=== PATIENT | male | born 1980 ===

== ENCOUNTER 2023-03-31 11:39 | Emergency (ER) | payer MEDICAID, SELFPAY ==
[2023-03-31 12:37] VITALS: BP 133/80; PULSE 66; RESP 19; TEMP 36.6; O2SAT 96; BMI 37.0
--- NOTE | 2023-03-31 12:39 | ED.GENADULT ---
HPI - General Adult General Chief complaint: Abdominal Pain Stated complaint: Lower abd pain Time Seen by Provider: 03/31/23 17:45 Source: patient Mode of arrival: ambulatory Limitations: no limitations History of Present Illness HPI narrative: 43-year-old male presents with lower abdominal pain. Symptoms started 2 days ago. The pain started off as a /10 and the crescendoed yesterday to it 03/26. The pain is in the suprapubic area. Sometimes it radiates the lower back. There is no clear relieving or exacerbating features. He does have urinary frequency, urgency and dysuria. Denies any hematuria. He denies any flank pain. The pain is currently moderate in nature. He has never had anything like this before. He is and is in a monogamous relationship with his . Related Data Previous Rx's Medication Instructions Recorded levofloxacin 500 mg tablet 500 mg PO DAILY #10 tabs 03/31/23 Allergies Allergy/AdvReac Type Severity Reaction Status Date / Time fish derived [FISH] Allergy Unknown SWELLING/HI Unverified 05/03/20 16:44 VES Review of Systems Review of Systems: CONSTITUTIONAL: Denies weight loss, fever and chills. HEENT: Denies changes in vision and hearing. RESPIRATORY: Denies SOB and cough. CV: Denies palpitations no CP. GI: + abdominal pain, - nausea, vomiting and diarrhea. : + dysuria and urinary frequency. MSK: Denies myalgia and joint pain. SKIN: Denies rash and pruritus. NEUROLOGICAL: Denies headache and syncope. PSYCHIATRIC: Denies recent changes in mood. Denies anxiety and depression. All other ROS are negative unless in HPI Physical Exam ED Vital Signs: Vital Signs - 24 hr 03/31/23 12:37 Temperature 97.8 F Pulse Rate 66 Respiratory Rate 19 Blood Pressure 133/80 Pulse Oximetry 96 Oxygen Delivery Method Room Air BMI result Body Mass Index 37.0 GEN: Well developed, no acute distress, alert, oriented HEENT: Normocephalic, atraumatic, normal external ears, nose appears normal, no oropharyngeal edema or exudates Eyes: Normal to appearance Neck: Supple, no lymphadenopathy Respiratory: Talks in complete sentences, no respiratory distress, clear to auscultation bilaterally Cardiovascular: Regular rate and rhythm, no murmurs rubs or gallops Abdomen: Soft, suprapubic tenderness, nondistended, no guarding, no rebound Back: No CVA tenderness Extremities: No clubbing cyanosis or edema Neurologic: No focal neurologic deficits, cranial nerves 2-12 intact, strength is 5/5 bilaterally Skin: No rash Course Course Course Narrative: This is an RME: Additional HPI, ROS, PE not included below will be deferred to primary provider. Patient is a 43 year old healthy male presenting with lower abdominal pain since Thursday. Denies nausea or vomiting. Trouble urinating. Patient has not seen GI and has no history of diverticulitis. Plan: labs, urine Reevaluation(s) Reevaluation #1: Patient has UTI. He has no right lower quadrant tenderness, doubt need to do any imaging studies at this time. Is unusual for young male to have a UTI. Will refer the patient to Urology. Will start patient on levofloxacin. Time: 17:56 Medical Decision Making Medical Decision Making [facility] Narrative: Patient presents with lower abdominal pain and urinary symptoms. Exam reveals suprapubic tenderness without rebound or guarding. There is no McBurney's point tenderness, negative Felder sign, negative Rovsing sign, no left lower quadrant abdominal tenderness. Differential diagnosis includes UTI, kidney stone, diverticulitis, appendicitis, colitis, mesenteric adenitis, IBD, IBS Plan: Check labs. Re-evaluate patient should he develop any localizing tenderness the right lower quadrant or other areas, would consider CT scan or ultrasound. At this point, doubt patient will warrant admission however, she show any acute abdominal findings, he may require admission, observation possible surgery. Differential Diagnosis Differential Diagnoses: The differential diagnosis associated with the presentation includes (See above) Admission/Observation Consideration of admission/observation: Escalation of care including admission/observation considered Lab Data [facility] Lab Attestation statement: I reviewed the patient's lab results. 03/31/23 14:19 03/31/23 14:19 Labs: Lab Results 03/31/23 03/31/23 03/31/23 Range/Units 14:18 14:19 14:19 WBC 7.7 (4.8-10.8) X10*3/uL RBC 4.81 (4.60-5.80) X10*6/uL Hgb 14.1 (14.0-18.0) g/dl Hct 42.1 (42.0-52.0) % MCV 87.5 (80.0-98.0) fL MCH 29.3 (27.0-33.0) pg MCHC 33.5 (31.0-36.0) g/dl RDW 11.7 (11.0-16.0) % Plt Count 335 (160-400) X10*3/uL MPV 10.3 (9.4-12.4) fL Immature Gran % (Auto) 0.3 (0.0-0.4) % Neut % (Auto) 55.2 (45-73) % Lymph % (Auto) 31.9 (20-40) % [place] % (Auto) 7.2 (2-11) % Eos % (Auto) 4.7 H (0-4) % Baso % (Auto) 0.7 (0-2) % Lymph # (Auto) 2.4 (1.2-4.9) X10*3/uL [place] # (Auto) 0.6 (0.1-1.2) X10*3/uL Eos # (Auto) 0.4 (0.0-0.4) X10*3/uL Baso # (Auto) 0.1 (0.0-0.2) X10*3/uL Abs Immat Gran (auto) 0.02 (0.00-0.03) X10*3/uL Absolute Neuts (auto) 4.2 (2.0-8.3) x10*3/uL Absolute Nucleated RBC 0.000 (0.0-0.012) X10*3/uL Nucleated RBC % (auto) 0.0 (0.0-0.2) /100WBC Sodium 140 (135-145) mmol/L Potassium 4.4 (3.3-5.1) mmol/L Chloride 102 (96-108) mmol/L Carbon Dioxide 29 (22-29) mmol/L Anion Gap 13 (12-20) BUN 10 (9-16) mg/dL Creatinine 0.96 (0.5-1.4) mg/dL Estim Creat Clear Calc 119.5 Estimated GFR > 60 Random Glucose 144 H (60-115) mg/dL Calcium 9.7 (8.4-10.2) mg/dL Magnesium 2.4 (1.6-2.6) mg/dL Total Bilirubin 0.6 (0.0-1.0) mg/dL AST 14 (5-37) U/L ALT 19 (0-40) U/L Alkaline Phosphatase 68 (39-117) U/L Total Protein 8.2 H (6.5-8.0) g/dL Albumin 4.5 (3.5-5.0) g/dL Lipase 83 H (8-78) U/L Urine Color Yellow Urine Appearance Clear Urine pH 6.0 (5.0-9.0) Ur Specific [place] 1.025 (1.005-1.025) Urine Protein Negative (Neg-Trace) mg/dL Urine Glucose (UA) Negative (Negative) mg/dL Urine Ketones Trace (Negative) mg/dL Urine Blood Negative (Negative) Urine Nitrite Negative (Negative) Ur Leukocyte Esterase Small (1+) H (Negative) Urine RBC 3-5 H (0-2) /HPF Urine WBC 21-50 H (0-5) /HPF Ur Squamous Epith Cells 0-2 (0-2) /HPF Urine Bacteria None Seen (None Seen) Hyaline Casts 0-2 (0-2) /LPF has UTI Prescription Management I considered prescription management with: Antibiotic Discharge Plan Discharge Clinical Impression: Acute lower UTI Patient Disposition: Home, Self-Care Instructions: Urinary Tract Infection in Men (DC) Prescriptions: New levofloxacin 500 mg tablet 500 mg PO DAILY Qty: 10 0RF Referrals: Sanjay Valerio MD [Physician] - 1 week
[2023-03-31 14:37] LABS: MANUAL DIFF FLAG NO
[2023-03-31 14:39] LABS: Basophils Absolute Auto 0.1 X10*3/uL (0.0-0.2); Basophils Percent Auto 0.7 % (0-2); Eosinophils Absolute Auto 0.4 X10*3/uL (0.0-0.4); Eosinophils Percent Auto 4.7 % (0-4); Hematocrit 42.1 % (42.0-52.0); Hemoglobin 14.1 g/dl (14.0-18.0); Imm Gran Abs Auto 0.02 X10*3/uL (0.00-0.03); Imm Gran Pct Auto 0.3 % (0.0-0.4); Lymphocytes Absolute Auto 2.4 X10*3/uL (1.2-4.9); Lymphocytes Percent Auto 31.9 % (20-40); Mean Corpuscular HGB Conc 33.5 g/dl (31.0-36.0); Mean Corpuscular Hemoglobin 29.3 pg (27.0-33.0); Mean Corpuscular Volume 87.5 fL (80.0-98.0); Mean Platelet Volume 10.3 fL (9.4-12.4); Monocytes Absolute Auto 0.6 X10*3/uL (0.1-1.2); Monocytes Percent Auto 7.2 % (2-11); Neutrophils Absolute Auto 4.2 x10*3/uL (2.0-8.3); Neutrophils Percent Auto 55.2 % (45-73); Platelet Count 335 X10*3/uL (160-400); Red Blood Count 4.81 X10*6/uL (4.60-5.80); Red Cell Distribution Width 11.7 % (11.0-16.0); White Blood Count 7.7 X10*3/uL (4.8-10.8)
[2023-03-31 14:40] LABS: Appearance Urine Clear; Color Urine Yellow; Glucose Urine UA Negative (Negative); Leukocyte Esterase Urine Small (1+) (Negative); Nitrite Urine Negative (Negative); Specific Gravity - Urine 1.025 (1.005-1.025); UMIC TRIGGER UACC YES; Urine Blood Negative (Negative); Urine Ketones Trace mg/dL (Negative); Urine Protein Negative (Neg-Trace)
[2023-03-31 14:42] LABS: Bacteria Urine None Seen (None Seen); Hyaline Casts Urine 0-2 /LPF (0-2); Squamous Epithelial Cell Urine 0-2 /HPF (0-2); UACC Culture Trigger YES; WBC Urine 21-50 /HPF (0-5)
[2023-03-31 14:55] LABS: Alanine Aminotransferase 19 U/L (0-40); Albumin Level 4.5 g/dL (3.5-5.0); Alkaline Phosphatase 68 U/L (39-117); Anion Gap 13 (12-20); Aspartate Amino Transferase 14 U/L (5-37); Bilirubin Total 0.6 mg/dL (0.0-1.0); Blood Urea Nitrogen 10 mg/dL (9-16); Calcium 9.7 mg/dL (8.4-10.2); Carbon Dioxide 29 mmol/L (22-29); Chloride 102 mmol/L (96-108); Creatinine Clr Calc Pharmacy 119.5; Estimated Glomerular Filt Rate > 60; Glucose Random 144 mg/dL (60-115); Lipase 83 U/L (8-78); Magnesium 2.4 mg/dL (1.6-2.6); Potassium 4.4 mmol/L (3.3-5.1); Sodium 140 mmol/L (135-145); Total Protein 8.2 g/dL (6.5-8.0)
[2023-03-31] MEDS: levoFLOXacin 500 MG TABLET PO (18:30)
[2023-03-31 20:41] VITALS: BP 137/78; PULSE 60; RESP 16; TEMP 36.9; O2SAT 98
== END 2023-03-31 21:25 | disposition home or self-care (01) ==
PROVIDERS: Physician Assistant; Emergency Provider Emergency Medicine
DX: N39.0 Urinary tract infection, site not specified (principal); R10.30 Lower abdominal pain, unspecified
CPT/HCPCS: 36415; 80053; 81001; 83690; 83735; 85025; 87086; 99283

== ENCOUNTER 2023-06-10 12:08 | Emergency (ER) | payer BC, MEDICAID, SELFPAY ==
--- NOTE | ~2023-06-10 | XR_ITS ---
EXAMINATION: XR CHEST CLINICAL INFORMATION: Chest congestion. COMPARISON: None available. TECHNIQUE: Frontal view of the chest was obtained. FINDINGS: Lungs are well-inflated and clear. Trachea is midline in position. No evidence of interstitial disease, consolidation or mass. No pleural effusion or pneumothorax. Cardiac silhouette and pulmonary vessels are normal in size. The mediastinum and bettina have normal contour. The visualized bones and upper abdomen are unremarkable. XR/XR chest 1V IMPRESSION: No acute cardiopulmonary abnormality.
[2023-06-10 12:59] VITALS: BP 121/75; PULSE 73; RESP 17; TEMP 36.5; O2SAT 98
[2023-06-10 13:29] LABS: COVID-19 Test Negative (Negative); IDNOW Serial# 08D9AD1C
[2023-06-10 13:49] LABS: IDNOW Serial# 08D9AD1C; Influenza A Negative (Negative); Influenza B2 Negative (Negative)
--- NOTE | 2023-06-10 15:15 | ED.GENADULT ---
HPI - General Adult General Chief complaint: Upper Respiratory Symptoms Stated complaint: Diff Breathing Congestion Heavy Chest Time Seen by Provider: 06/10/23 15:13 Source: patient, family and RN notes reviewed Mode of arrival: ambulatory Limitations: no limitations History of Present Illness HPI narrative: This is a 43-year-old male, with no known past medical history, presenting to the emergency department for evaluation of cough, congestion, right ear pain and sore throat since yesterday. Patient states yesterday woke up feeling congested. He states that since the onset of his symptoms he has developed a sore throat and right ear pain. No fevers or chills. Denies any other complaints or concerns at this time. MD complaint: R ear pain Onset (ago): day(s) Relieving factors: none Exacerbating factors: none Associated symptoms: denies other symptoms Treatments prior to arrival: none Related Data Previous Rx's Medication Instructions Recorded levofloxacin 500 mg tablet 500 mg PO DAILY #10 tabs 03/31/23 amoxicillin 875 mg-potassium 1 tab PO BID 7 days #14 tabs 06/10/23 clavulanate 125 mg tablet Allergies Allergy/AdvReac Type Severity Reaction Status Date / Time fish derived [FISH] Allergy Unknown SWELLING/HI Unverified 05/03/20 16:44 VES Review of Systems Review of Systems: Yes all other systems are reviewed and are negative [facility] Past Medical History Attestation statement: The following information was validated with the patient. Social History Social History Advance Directives: No Advance Directives Information Provided: No Physical Exam ED Vital Signs: Vital Signs - 24 hr 06/10/23 12:59 Temperature 97.7 F Pulse Rate 73 Respiratory Rate 17 Blood Pressure 121/75 Pulse Oximetry 98 Oxygen Delivery Method Room Air BMI result Body Mass Index 0.4 Const General: cooperative, comfortable and no acute distress Orientation/consciousness: patient oriented x3 Limitations: no limitations HENMT Other: R TM is erythematous with multiple ?white exudates on the surface. TM is intact. Canal nonerythematous, nonedematous. L TM unremarkable Head: Yes normal to inspection, Yes normocephalic and Yes atraumatic Ears: hearing grossly normal bilaterally General nose exam: Normal external nose present Face and sinus: Yes normal facial exam Mouth: Normal oral and palatal mucosa present, oropharynx normal and moist mucous membranes Throat: Yes posterior oropharynx normal Eyes General: appearance normal, both eyes and all related structures Eyelids: Yes eyelids normal Conjunctivae: conjunctivae normal Sclerae: sclerae normal Pupils: Equal, round and reactive pupils present EOM: EOMs intact bilaterally Neck Neck: Yes normal visual inspection, Yes full ROM and Yes no lymphadenopathy Lymphatic: no lymphadenopathy noted Chest Chest palpation & inspection: normal inspection of the chest Resp Effort & Inspection: normal respiratory effort and able to speak in complete sentences Auscultation: clear to auscultation bilaterally, no crackles, no rales, no rhonchi and no wheezes Cardio Rate: regular rate Rhythm: regular rhythm Heart sounds: S1 normal heart sound present and S2 normal heart sound present GI Inspection: Yes normal to inspection Skin General skin exam: no rashes or lesions noted Trauma: no lacerations or abrasions Wounds: no wounds Neuro General: patient oriented x3 and moves all extremities Cranial nerves: Yes Equal, round and reactive pupils present Extrem General: Yes normal to inspection Right upper extremity: normal to inspection Left upper extremity: normal to inspection Right lower extremity: normal to inspection Left lower extremity: normal to inspection Medical Decision Making Medical Decision Making MDM Narrative: 43 y/o M presenting to the ER with complaints of R ear pain, cough and congestion since yesterday. On arrival, pt nontoxic appearing, VSS. DDX including otitis media, otitis externa, URi, viral syndrome, pneumonia - unlikely. Viral swabs negative. Exam findings consistent with otits media, however would like ENT f/u given atypical appearing TM. Discussed findings with pt. He agrees with plan. Given return precautions. Stable for d/c. Differential Diagnosis Differential Diagnoses: The differential diagnosis associated with the presentation includes see above Lab Data Labs: Lab Results 06/10/23 Range/Units 13:09 COVID-19 (RU) Negative (Negative) COVID-19 Clin Com See Note Influenza Type A (BIB) Negative (Negative) Influenza Type B (BIB) Negative (Negative) Influenza A & B Note See Note Discharge Plan Discharge Clinical Impression: Otitis media Patient Disposition: Home, Self-Care Instructions: Ear Infection (ED) Additional Instructions: You tested negative for COVID and flu. Your chest x-ray did not show pneumonia. Your right ear appears to be infected. Please take entire course of antibiotics even if you are feeling better. You may take Tylenol and ibuprofen as needed for fevers. Please follow-up with ENT, call today to make an appointment. If any new or worsening symptoms occur including but not limited to worsening ear pain, chest pain, shortness of breath, please return for re-evaluation. Prescriptions: New amoxicillin-pot clavulanate 875-125 mg tablet 1 tab PO BID 7 Days Qty: 14 0RF No Action levofloxacin 500 mg tablet 500 mg PO DAILY Qty: 10 0RF Referrals: Lev Morales [Physician] - (R OM; R atypical TM, needs further evaluation ) Stand Alone Forms: Work/School Release Interventions: ED Discharge Assessment Last Done: 06/10/23 15:58 Discharge Date/Time: 06/10/23 16:02
== END 2023-06-10 16:02 | disposition home or self-care (01) ==
PROVIDERS: Emergency Provider Emergency Medicine
DX: H66.91 Otitis media, unspecified, right ear (principal); Z11.52 Encounter for screening for COVID-19; R05.9 Cough, unspecified
CPT/HCPCS: 71045; 87502; 87635; 99283

== ENCOUNTER 2023-06-16 13:16 | Emergency (ER) | payer BC, MEDICAID, SELFPAY ==
--- NOTE | ~2023-06-16 | XR_ITS ---
EXAMINATION: XR CHEST CLINICAL INFORMATION: Cough, chest pain COMPARISON: Chest 04/10/2023 TECHNIQUE: Frontal view of the chest was obtained. FINDINGS: No significant abnormality is noted involving the heart, lungs, mediastinum, bony thorax or soft tissues. XR/XR chest 1V IMPRESSION: No acute cardiopulmonary disease.
--- NOTE | 2023-06-16 13:23 | ECG_ITS ---
Test Reason : chest tightness Blood Pressure : / mmHG Vent. Rate : 073 BPM Atrial Rate : 073 BPM P-R Int : 178 ms QRS Dur : 090 ms QT Int : 376 ms P-R-T Axes : 018 000 004 degrees QTc Int : 414 ms Normal sinus rhythm with sinus arrhythmia Nonspecific T wave abnormality Abnormal ECG No previous ECGs available Referred By: Generic ED Physician Electronically Signed By:SELINA BOB MD
[2023-06-16 13:44] VITALS: BP 115/70; PULSE 85; RESP 18; TEMP 36.4; O2SAT 97; BMI 37.8
--- NOTE | 2023-06-16 13:44 | ED_ITS ---
HPI - Chest Pain General Chief Complaint: Upper Respiratory Symptoms Stated Complaint: Chest Tightness Wheezing Time Seen by Provider: 06/16/23 17:02 Source: patient, family and RN notes reviewed Mode of arrival: ambulatory Limitations: no limitations History of Present Illness HPI narrative: This is a 43-year-old male, with a past medical history of childhood asthma, presenting to the emergency department with complaints of chest discomfort, body aches, coughing and wheezing x1 week. Patient was seen here last for a right ear infection. He has been taking the prescribed antibiotic, Augmentin, and states that his right ear pain has improved however, he is now having cough and chest tightness. He states that the chest pain comes and goes, worsens with coughing. Denies any fevers or chills. Denies any abdominal pain, nausea, vomiting. He does endorse mild diarrhea, no bloody or black stool. No family medical history of heart attacks, does report hypertension runs in his family. Denies any other complaints or concerns at this time. MD complaint: chest pain Onset (ago): day(s) Timing of current episode: episodic Prior episodes: No Onset: other (Worsens with coughing) Pain radiation: none Quality: tightness Relieving factors: nothing Exacerbating factors: nothing Context: recent illness Associated symptoms: cough Treatment prior to arrival: none Risk Factors Coronary artery disease risk factors: none Thoracic aortic dissection risk factors: none Related Data Previous Rx's Medication Instructions Recorded levofloxacin 500 mg tablet 500 mg PO DAILY #10 tabs 03/31/23 amoxicillin 875 mg-potassium 1 tab PO BID 7 days #14 tabs 06/10/23 clavulanate 125 mg tablet albuterol sulfate 90 mcg/actuation 2 puff inhalation Q4-6H PRN 06/16/23 aerosol inhaler (ProAir HFA) shortness of breath or wheezing #6.7 grams benzonatate 200 mg capsule 200 mg PO TID PRN cough #14 caps 06/16/23 hydrocodone-homatropine 5 mg-1.5 5 ml PO Q4-6H PRN cough #200 mL 06/16/23 mg/5 mL (5 mL) oral syrup (Hycodan) Allergies Allergy/AdvReac Type Severity Reaction Status Date / Time fish derived [FISH] Allergy Unknown SWELLING/HI Verified 06/16/23 13:44 VES Review of Systems 2 Review of Systems: Yes all other systems are reviewed and are negative Constitutional: Constitutional: Reports as per [facility] Past Medical History Attestation statement: The following information was validated with the patient. Social History Social History Advance Directives: No Physical Exam 2 Vital Signs: Vital Signs: Last Vital Signs Temp 97.5 F 06/16/23 13:44 Pulse 69 06/16/23 17:51 Resp 18 06/16/23 17:51 BP 115/70 06/16/23 13:44 Pulse Ox 97 06/16/23 13:44 O2 Del Method Room Air 06/16/23 13:44 BMI result Body Mass Index 37.8 Const: General: cooperative, comfortable and no acute distress O rientation/consciousness: patient oriented x3 Limitations: no limitations HEENT: Head: Yes normal to inspection, Yes normocephalic and Yes atraumatic Ears: hearing grossly normal bilaterally General nose exam: Normal external nose present Face and sinus: Yes normal facial exam Mouth: Normal oral and palatal mucosa present, oropharynx normal and moist mucous membranes Throat: Yes posterior oropharynx normal Eyes: General: appearance normal, both eyes and all related structures E yelids: Yes eyelids normal Conjunctivae: conjunctivae normal Sclerae: s clerae normal Pupils: Equal, round and reactive pupils present EOM: EOMs intact bilaterally Neck: Neck: Yes normal visual inspection, Yes full ROM and Yes no lymphadenopathy Lymphatic: no lymphadenopathy noted Chest: Other: Nontender chest wall. Tenderness palpation along the right posterior ribs Chest palpation & inspection: normal inspection of the chest Resp: Other: Faint expiratory wheezes noted to bilateral lung bases. Effort & Inspection: normal respiratory effort and able to speak in complete sentences Cardio: Rate: regular rate Rhythm: regular rhythm Heart sounds: S1 normal heart sound present and S2 normal heart sound present GI: Inspection: Yes normal to inspection Skin: General skin exam: no rashes or lesions noted Trauma: no lacerations or abrasions Wounds: no wounds Neuro: General: patient oriented x3 and moves all extremities Cranial nerves: Yes Equal, round and reactive pupils present Extrem: General: Yes normal to inspection Right upper extremity: normal to inspection Left upper extremity: normal to inspection Right lower extremity: normal to inspection Left lower extremity: normal to inspection Course Course Course Narrative: RME: 43yo m w/PMHx recently Dx Otitis media started on Augmentin in our ED on 06/10 presenting to the ED today c/o dry cough, chest tightness and wheezing & chills x last week. Admits sx are getting worse. denies fever EKG, labs, CXR, COVID testing ordered Full HPI, ROS and PE to be performed by primary ED provider. Reevaluation(s) Reevaluation #1: Negative COVID, flu, RSV, no leukocytosis, chemistry within normal limits. Glucose mildly elevated at 190, troponin negative. Does not need repeat troponin given chest pain has been consistent over the last week. Chest pain worsens with cough. Patient with wheezes on examination, ED bronch protocol was ordered. Time: 17:44 Reevaluation #2: Patient received inhaler, feeling much better. Symptoms likely viral and reactive airway disease etiology. Will treat with oral and Time: 18:09 Medications Administered Discontinued Medications Generic Name Dose Route Start Last Admin Trade Name Freq PRN Reason Stop Dose Admin Albuterol Sulfate 4 puff 06/16/23 17:34 06/16/23 17:50 Albuterol Sulfate 90 Mcg 8 Gm Inhaler INHALE 06/16/23 17:35 4 puff ONCE ONE Administration Medical Decision Making Medical Decision Making [facility] Narrative: This is a 43-year-old male presenting to the emergency department for evaluation of chest discomfort and tightness after coughing x 1 week. Patient was seen here in the emergency department for a right otitis media. He has been taking the Augmentin as prescribed. He states that he continues to cough and has noticed worsening wheezing and shortness of breath. He states that the cough keeps him up at night. He has a history of childhood asthma. On arrival, vital signs within normal limits. Lines with extra epifanio phase wheeze and bilateral lung bases. Differential diagnoses include URI, reactive airway disease upper respiratory infection, less likely pneumonia. Less likely ACS. Plan: Labs, EKG, chest x-ray, viral swabs Differential Diagnosis Differential Diagnoses: The differential diagnosis associated with the presentation includes Admission/Observation Consideration of admission/observation: Escalation of care including admission/observation considered Lab Data [facility] Lab Attestation statement: I reviewed the patient's lab results. See MDM 06/16/23 14:09 06/16/23 14:09 Labs: Lab Results 06/16/23 06/16/23 Range/Units 14:09 16:45 WBC 7.8 (4.8-10.8) X10*3/uL RBC 4.37 L (4.60-5.80) X10*6/uL Hgb 13.0 L (14.0-18.0) g/dl Hct 38.5 L (42.0-52.0) % MCV 88.1 (80.0-98.0) fL MCH 29.7 (27.0-33.0) pg MCHC 33.8 (31.0-36.0) g/dl RDW 11.5 (11.0-16.0) % Plt Count 364 (160-400) X10*3/uL MPV 10.1 (9.4-12.4) fL Immature Gran % (Auto) 0.4 (0.0-0.4) % Neut % (Auto) 60.8 (45-73) % Lymph % (Auto) 25.5 (20-40) % [place] % (Auto) 4.0 (2-11) % Eos % (Auto) 8.4 H (0-4) % Baso % (Auto) 0.9 (0-2) % Lymph # (Auto) 2.0 (1.2-4.9) X10*3/uL [place] # (Auto) 0.3 (0.1-1.2) X10*3/uL Eos # (Auto) 0.7 H (0.0-0.4) X10*3/uL Baso # (Auto) 0.1 (0.0-0.2) X10*3/uL Abs Immat Gran (auto) 0.03 (0.00-0.03) X10*3/uL Absolute Neuts (auto) 4.7 (2.0-8.3) x10*3/uL Absolute Nucleated RBC 0.000 (0.0-0.012) X10*3/uL Nucleated RBC % (auto) 0.0 (0.0-0.2) /100WBC Sodium 142 (135-145) mmol/L Potassium 4.4 (3.3-5.1) mmol/L Chloride 104 (96-108) mmol/L Carbon Dioxide 27 (22-29) mmol/L Anion Gap 15 (12-20) BUN 8 L (9-16) mg/dL Creatinine 0.97 (0.5-1.4) mg/dL Estim Creat Clear Calc 119.6 Estimated GFR > 60 Random Glucose 190 H (60-115) mg/dL Calcium 9.7 (8.4-10.2) mg/dL Troponin I High Sens < 2.7 (<3.5-35.0) ng/L COVID-19 (RU) Negative (Negative) COVID-19 Clin Com See Note Influenza Type A (BIB) Negative (Negative) Influenza Type B (BBI) Negative (Negative) Influenza A & B Note See Note Independent Interpretation I performed an independent interpretation of an: EKG Interpretation: EKG normal sinus rhythm with sinus arrhythmia at a ventricular rate of 73 beats per minute. No ST elevation or depression. QTC 414 Radiology Impression Discussion of test interpretation with radiology: I have reviewed the radiologist's reading. Radiologist Impression: EXAMINATION: XR CHEST CLINICAL INFORMATION: Cough, chest pain COMPARISON: Chest 04/10/2023 TECHNIQUE: Frontal view of the chest was obtained. FINDINGS: No significant abnormality is noted involving the heart, lungs, mediastinum, bony thorax or soft tissues. XR/XR chest 1V IMPRESSION: No acute cardiopulmonary disease. Dictated By: Allyson Ramirez MD Signed By: <Electronically signed Independent Historian Clinical information obtained from an independent historian. History obtained from or confirmed by: Spouse Discharge Plan Discharge Clinical Impression: Upper respiratory infection, Viral infection Patient Disposition: Home, Self-Care Instructions: Asthma (ED), Upper Respiratory Infection (ED), Viral Syndrome (ED), How Your Lungs Work (ED) Additional Instructions: Your EKG was reassuring today. Your chest x-ray does not show a pneumonia. You tested negative for COVID and flu. Your symptoms are likely due to a virus. You received an inhaler in the department today. Please use this as directed. I am also prescribing a medication to help with the cough. Tessalon is a cough medication you can take throughout the day as this does not cause drowsiness. I am also prescribing you a cough medication (hycodan) with a narcotic to help with sleep. Please only take this at bedtime and as needed. If any new or worsening symptoms occur including but not limited to worsening shortness of breath or chest pain, please return for re-evaluation. Prescriptions: New benzonatate 200 mg capsule 200 mg PO TID PRN (Reason: cough) Qty: 14 0RF hydrocodone-homatropine [Hycodan] 5-1.5 mg/5 mL (5 mL) syrup 5 ml PO Q4-6H PRN (Reason: cough) Qty: 200 0RF Rx Instructions: Partial Fill upon patient request. albuterol sulfate [ProAir HFA] 90 mcg/actuation HFA aerosol inhaler 2 puff inhalation Q4-6H PRN (Reason: shortness of breath or wheezing) Qty: 6.7 0RF No Action levofloxacin 500 mg tablet 500 mg PO DAILY Qty: 10 0RF amoxicillin-pot clavulanate 875-125 mg tablet 1 tab PO BID 7 Days Qty: 14 0RF
[2023-06-16 14:10] LABS: MANUAL DIFF FLAG NO
[2023-06-16 14:15] LABS: Basophils Absolute Auto 0.1 X10*3/uL (0.0-0.2); Basophils Percent Auto 0.9 % (0-2); Eosinophils Absolute Auto 0.7 X10*3/uL (0.0-0.4); Eosinophils Percent Auto 8.4 % (0-4); Hematocrit 38.5 % (42.0-52.0); Imm Gran Abs Auto 0.03 X10*3/uL (0.00-0.03); Imm Gran Pct Auto 0.4 % (0.0-0.4); Lymphocytes Percent Auto 25.5 % (20-40); Mean Corpuscular HGB Conc 33.8 g/dl (31.0-36.0); Mean Corpuscular Hemoglobin 29.7 pg (27.0-33.0); Mean Corpuscular Volume 88.1 fL (80.0-98.0); Mean Platelet Volume 10.1 fL (9.4-12.4); Monocytes Absolute Auto 0.3 X10*3/uL (0.1-1.2); Neutrophils Absolute Auto 4.7 x10*3/uL (2.0-8.3); Neutrophils Percent Auto 60.8 % (45-73); Platelet Count 364 X10*3/uL (160-400); Red Blood Count 4.37 X10*6/uL (4.60-5.80); Red Cell Distribution Width 11.5 % (11.0-16.0); White Blood Count 7.8 X10*3/uL (4.8-10.8)
[2023-06-16 14:24] LABS: Anion Gap 15 (12-20); Blood Urea Nitrogen 8 mg/dL (9-16); Calcium 9.7 mg/dL (8.4-10.2); Carbon Dioxide 27 mmol/L (22-29); Chloride 104 mmol/L (96-108); Creatinine Clr Calc Pharmacy 119.6; Estimated Glomerular Filt Rate > 60; Glucose Random 190 mg/dL (60-115); Potassium 4.4 mmol/L (3.3-5.1); Sodium 142 mmol/L (135-145)
[2023-06-16 14:28] LABS: COVID-19 Test Negative (Negative); IDNOW Serial# 6674DD1D
[2023-06-16 14:33] LABS: Troponin-I High Sensitivity < 2.7 ng/L (<3.5-35.0)
[2023-06-16 17:11] LABS: IDNOW Serial# 08D9AD1C; Influenza A Negative (Negative); Influenza B2 Negative (Negative)
[2023-06-16] MEDS: Albuterol Sulfate 90 MCG 8 GM INHALER 4 PUFF INHALE (17:50)
[2023-06-16 17:51] VITALS: PULSE 69; RESP 18; O2SAT 97
== END 2023-06-16 18:58 | disposition home or self-care (01) ==
PROVIDERS: Physician Assistant; Emergency Provider Student in an Organized Health Care Education/Training Program; PCP Internal Medicine
DX: J06.9 Acute upper respiratory infection, unspecified (principal); B34.9 Viral infection, unspecified; R05.9 Cough, unspecified; Z11.52 Encounter for screening for COVID-19; Z79.899 Other long term (current) drug therapy
CPT/HCPCS: 36415; 71045; 80048; 84484; 85025; 87502; 87635; 93005; 94640; 99284

== ENCOUNTER 2023-10-26 12:53 | Emergency (ER) | payer BC, MEDICAID, SELFPAY ==
--- NOTE | ~2023-10-26 | XR_ITS ---
EXAMINATION: XR LUMBOSACRAL SPINE CLINICAL INFORMATION: Low back pain. COMPARISON: Lumbar spine radiographs dated 09/22/2016. TECHNIQUE: Three views of the lumbosacral spine. FINDINGS: There are 5 nonrib bearing lumbar vertebrae. Lumbar spinal alignment is anatomic in the sagittal projection. The vertebral bodies demonstrate preserved stature. Intervertebral disc space heights are preserved. The facet joints are anatomically aligned. Regional soft tissue is unremarkable. There is abundant stool throughout the colon. XR/XR lumbar spine 2-3V IMPRESSION: No acute osseous lumbar spine abnormality.
[2023-10-26 14:35] VITALS: BP 112/70; PULSE 76; RESP 18; TEMP 36.6; O2SAT 97; BMI 36.8
--- NOTE | 2023-10-26 14:38 | ED.GENADULT ---
HPI - General Adult General Chief complaint: Back Pain/Injury Stated complaint: back spasms and leg pain Time Seen by Provider: 10/26/23 15:08 Source: patient Mode of arrival: ambulatory Limitations: no limitations History of Present Illness HPI narrative: Patient is a 43 year old assigned male at with no reported medical history presenting to the emergency department today with left sided back pain. Patient states that this morning he woke up with left lower back pain that is worse with movement. Patient denies any dizziness, lightheadedness, abdominal pain, nausea, vomiting, fever, chills, blurry vision, double vision, loss of vision, chest pain, difficulty breathing, shortness of breath, night sweats, pain with urination, increased urinary frequency, increased urinary urgency, blood in his urine or stool, syncope or a near syncopal episode, recent trauma or falls, bowel incontinence, bladder incontinence, bowel retention, bladder retention, or any other complaints at this time. Onset (ago): hour(s) Location: back Severity: mild Severity scale (1-10): 3 Quality: aching and dull Pain Consistency: constant Relieving factors: none Exacerbating factors: movement Associated symptoms: denies other symptoms Treatments prior to arrival: none Related Data Previous Rx's Medication Instructions Recorded levofloxacin 500 mg tablet 500 mg PO DAILY #10 tabs 03/31/23 amoxicillin 875 mg-potassium 1 tab PO BID 7 days #14 tabs 06/10/23 clavulanate 125 mg tablet albuterol sulfate 90 mcg/actuation 2 puff inhalation Q4-6H PRN 06/16/23 aerosol inhaler (ProAir HFA) shortness of breath or wheezing #6.7 grams benzonatate 200 mg capsule 200 mg PO TID PRN cough #14 caps 06/16/23 hydrocodone-homatropine 5 mg-1.5 5 ml PO Q4-6H PRN cough #200 mL 06/16/23 mg/5 mL (5 mL) oral syrup (Hycodan) cyclobenzaprine 5 mg tablet 5 mg PO TID PRN muscle spasm 7 10/26/23 days #21 tabs Allergies Allergy/AdvReac Type Severity Reaction Status Date / Time fish derived [FISH] Allergy Unknown SWELLING/HI Verified 10/26/23 14:35 VES Review of Systems Constitutional: Constitutional: Reports no additional constitutional complaints, Denies chills, Denies fever(s) and Denies night sweats Eyes: Eyes: Reports no additional eye complaints, Denies blurry vision, Denies change in vision, Denies diplopia, Denies eye discharge, Denies loss of vision and Denies eye pain ENT: Denies dizziness Cardiovascular: Cardiovascular: Reports no additional cardiovascular complaints, Denies chest pain, Denies lightheadedness, Denies Loss of Consciousness and Denies dyspnea Respiratory: Respiratory: Reports no additional respiratory complaints and Denies dyspnea Gastrointestinal: Gastrointestinal: Reports no additional gastrointestinal complaints, Denies abdominal pain, Denies melena, Denies hematochezia, Denies change in bowel habits and Denies change in stool character Genitourinary: Genitourinary: Reports no additional male genitourinary complaints, Denies hematuria, Denies oliguria, Denies difficulty urinating, Denies dysuria, Denies urinary frequency, Denies urinary hesitancy, Denies urinary incontinence and Denies urinary urgency Musculoskeletal: Musculoskeletal: Reports no additional musculoskeletal complaints, Reports back pain, Denies numbness and Denies tingling Neurologic: Denies dizziness, Denies loss of vision, Denies numbness and Denies tingling Psychiatric: Psychiatric: Reports no additional psychiatric complaints Endocrine: Endocrine: Reports no additional endocrine complaints Hematologic/Lymphatic: Hematologic/Lymphatic: Reports no additional hematologic/lymphatic complaints Allergic/Immunologic: Allergic/Immunologic: Reports no additional allergic/immunologic complaints PMFSH Past Medical History Attestation statement: The following information was validated with the patient. Source: old records reviewed and nursing notes reviewed Social History Social History Smoked in Last 30 Days: No Use of substances other than those prescribed or required for medical reasons: No Advance Directives: No Advance Directives Information Provided: No Physical Exam ED Vital Signs: Vital Signs - 24 hr 10/26/23 14:35 Temperature 98 F Pulse Rate 76 Respiratory Rate 18 Blood Pressure 112/70 Pulse Oximetry 97 Oxygen Delivery Method Room Air BMI result Body Mass Index 36.8 Const General: cooperative, no acute distress, alert and awake Nutritional Appearance: well nourished Orientation/consciousness: patient oriented x3 Limitations: no limitations HENMT Head: Yes normal to inspection and Yes atraumatic Ears: hearing grossly normal bilaterally and external ears normal General nose exam: Normal external nose present, no nasal discharge noted and no epistaxis Face and sinus: Yes normal facial exam, No abrasion and No laceration Mouth: Normal oral and palatal mucosa present, no drooling and no muffled voice Eyes General: appearance normal, both eyes and all related structures Periorbital: periorbital findings normal Eyelids: Yes eyelids normal Conjunctivae: conjunctivae normal Pupils: Equal, round and reactive pupils present EOM: EOMs intact bilaterally Neck Neck: Yes normal visual inspection, Yes full ROM and Yes no lymphadenopathy Chest Chest palpation & inspection: normal inspection of the chest Resp Effort & Inspection: normal respiratory effort and able to speak in complete sentences GI Inspection: Yes normal to inspection General: Yes no CVA tenderness Back/Spine/Pelvis Back: no CVA tenderness Cervical Spine: normal cervical lordosis and cervical ROM normal Thoracic/Lumbar Spine: thoracic and lumbar spine normal to inspection and thoraco-lumbar ROM normal Pelvis: no pain with anterior-posterior compression Neuro General: patient oriented x3 and moves all extremities Cranial nerves: Yes Equal, round and reactive pupils present Cognition (Neuro): normal cognition Motor exam (neuro): 5/5 motor strength present throughout Sensory Exam: Normal double simultaneous stimulation for sensation Coordination: [id number] test normal Extrem General: Yes normal to inspection, Yes full ROM and Yes capillary refill normal Psych Appearance: grossly normal Mental Status: mental status grossly normal Affect: normal affect Attitude: cooperative Thought process: Normal thought process present Thought content: Normal thought content present Insight: Good insight present (Psych) Course Course Course Narrative: RME; 43 yold male presents to the ED right sided low back pain radiating down leg that is worse on movement. patient denies any symptoms, nuasea, vomitting, or abdominal pain. UA and lumbar xray ordered Medications Administered Discontinued Medications Generic Name Dose Route Start Last Admin Trade Name Freq PRN Reason Stop Dose Admin Cyclobenzaprine HCl 5 mg 10/26/23 15:20 10/26/23 15:49 Cyclobenzaprine Hcl 5 Mg Tablet PO 10/26/23 15:21 5 mg ONCE ONE Administration Ketorolac Tromethamine 15 mg 10/26/23 15:20 10/26/23 15:49 Ketorolac Tromethamine 15 Mg/Ml Vial IM 10/26/23 15:21 15 mg ONCE ONE Administration Medical Decision Making Medical Decision Making [facility] Narrative: Patient is a 43 year old assigned male at with no reported medical history presenting to the emergency department today with back pain. Patient's physical exam was unremarkable. Patient's urine showed no acute process. Patient's lumbar x-ray showed no acute process. I explained my physical exam findings as well as all test results to the patient. I answered all questions asked by the patient. I stressed the importance of the patient taking his medication as prescribed. I stressed the importance of the patient following up with his primary care provider. I stressed the importance of the patient returning to the emergency department immediately if his symptoms were to worsen or if he were to develop any dizziness, shortness of breath, difficulty breathing, chest pain, blurry vision, loss of vision, nausea, vomiting, abdominal pain, fever, chills, back pain, or any other complaints. Patient verbalized agreement and understanding with this treatment plan and discharge. Differential Diagnosis Differential Diagnoses: The differential diagnosis associated with the presentation includes Low back pain Back strain Back sprain Mechanical back pain Admission/Observation Consideration of admission/observation: Escalation of care including admission/observation considered Patient would have been admitted to the hospital had his work up had any findings where hospital admission was appropriate and his clinical presentation warranted hospital admission. Lab Data [facility] Lab Attestation statement: I reviewed the patient's lab results. My interpretation of these results are in the [facility] Rationale portion of this note. Labs: Lab Results 10/26/23 Range/Units 15:22 Urine Color Yellow Urine Appearance Clear Urine pH 5.5 (5.0-9.0) Ur Specific [place] >= 1.030 H (1.005-1.025) Urine Protein Negative (Neg-Trace) mg/dL Urine Glucose (UA) Negative (Negative) mg/dL Urine Ketones Trace (Negative) mg/dL Urine Blood Negative (Negative) Urine Nitrite Negative (Negative) Ur Leukocyte Esterase Negative (Negative) Independent Interpretation I performed an independent interpretation of an: Plain X-Ray Interpretation: My interpretation is in agreement with the radiologist's impression of this imaging study. EXAMINATION: XR LUMBOSACRAL SPINE CLINICAL INFORMATION: Low back pain. COMPARISON: Lumbar spine radiographs dated 09/22/2016. TECHNIQUE: Three views of the lumbosacral spine. FINDINGS: There are 5 nonrib bearing lumbar vertebrae. Lumbar spinal alignment is anatomic in the sagittal projection. The vertebral bodies demonstrate preserved stature. Intervertebral disc space heights are preserved. The facet joints are anatomically aligned. Regional soft tissue is unremarkable. There is abundant stool throughout the colon. XR/XR lumbar spine 2-3V IMPRESSION: No acute osseous lumbar spine abnormality. Dictated By: Tru Snowden Jr, DO Signed By: Electronically signed by Tru Snowden Jr, DO 10/26/23 4145 Radiology Impression Discussion of test interpretation with radiology: I have reviewed the radiologist's reading. Prescription Management I considered prescription management with: Pain Medication (patient prescribed pain medication) Discharge Plan Discharge Clinical Impression: Back pain Patient Disposition: Home, Self-Care Instructions: Back Pain (ED) Additional Instructions: Follow up with your primary care provider. Return to the emergency department immediately if your symptoms worsen or if you develop any dizziness, shortness of breath, difficulty breathing, chest pain, blurry vision, loss of vision, nausea, vomiting, abdominal pain, fever, chills, back pain, or any other complaints. Prescriptions: New cyclobenzaprine 5 mg tablet 5 mg PO TID PRN (Reason: muscle spasm) 7 Days Qty: 21 0RF No Action levofloxacin 500 mg tablet 500 mg PO DAILY Qty: 10 0RF amoxicillin-pot clavulanate 875-125 mg tablet 1 tab PO BID 7 Days Qty: 14 0RF benzonatate 200 mg capsule 200 mg PO TID PRN (Reason: cough) Qty: 14 0RF hydrocodone-homatropine [Hycodan] 5-1.5 mg/5 mL (5 mL) syrup 5 ml PO Q4-6H PRN (Reason: cough) Qty: 200 0RF Rx Instructions: Partial Fill upon patient request. albuterol sulfate [ProAir HFA] 90 mcg/actuation HFA aerosol inhaler 2 puff inhalation Q4-6H PRN (Reason: shortness of breath or wheezing) Qty: 6.7 0RF Referrals: Osman Wren MD [Primary Care Provider] - Stand Alone Forms: Work/School Release Interventions: ED Discharge Assessment Last Done: 10/26/23 16:03 Discharge Date/Time: 10/26/23 16:03 Print Language: Emirati
[2023-10-26 15:34] LABS: Appearance Urine Clear; Color Urine Yellow; Glucose Urine UA Negative (Negative); Leukocyte Esterase Urine Negative (Negative); Nitrite Urine Negative (Negative); PH 5.5 (5.0-9.0); Specific Gravity - Urine >= 1.030 (1.005-1.025); Urine Blood Negative (Negative); Urine Ketones Trace mg/dL (Negative); Urine Protein Negative (Neg-Trace)
[2023-10-26] MEDS: Ketorolac Tromethamine 15 MG/ML VIAL IM (15:49)
[2023-10-26] MEDS: Cyclobenzaprine HCl 5 MG TABLET PO (15:49)
== END 2023-10-26 16:03 | disposition home or self-care (01) ==
PROVIDERS: Physician Assistant; Emergency Provider Emergency Medicine; PCP Internal Medicine
DX: M54.50 Low back pain, unspecified (principal)
CPT/HCPCS: 72100; 81003; 96372; 99284; J1885

== ENCOUNTER 2023-12-30 14:35 | Emergency (ER) | payer BC, MEDICAID, SELFPAY ==
--- NOTE | ~2023-12-30 | XR_ITS ---
EXAMINATION: XR KNEE, RIGHT CLINICAL INFORMATION: Pain and swelling COMPARISON: None available. TECHNIQUE: Four views of the right knee. FINDINGS: No significant knee joint effusion. Bones are normal anatomic alignment with no acute fracture or dislocation seen. Minimal degenerative changes with mild loss of joint space in the medial compartment. Incidental probable enchondroma or old ossified fibroma along the posterior distal femoral metaphysis of no significance XR/XR knee RT 3V IMPRESSION: Minimal degenerative changes but no acute bony abnormality.
[2023-12-30 15:39] VITALS: BP 129/78; PULSE 59; RESP 16; TEMP 36.3; O2SAT 99
--- NOTE | 2023-12-30 15:39 | ED.LOWEXIN ---
HPI - Extremity Injury (Lower) General Chief Complaint: Extremity Injury, Lower Stated Complaint: R knee pain Time Seen by Provider: 12/30/23 18:45 Source: patient, RN notes reviewed and old records reviewed Mode of arrival: ambulatory Limitations: no limitations History of Present Illness HPI Narrative: 43-year-old male presents for evaluation of right knee pain Patient reports pain to the right knee worsening over the last 4 days. 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 His pain tends to be worse when he is standing for long periods of time No fevers or chills Related Data Previous Rx's ?Medication ?Instructions ?Recorded levofloxacin 500 mg tablet 500 mg PO DAILY #10 tabs 03/31/23 amoxicillin 875 mg-potassium 1 tab PO BID 7 days #14 tabs 06/10/23 clavulanate 125 mg tablet albuterol sulfate 90 mcg/actuation 2 puff inhalation Q4-6H PRN 06/16/23 aerosol inhaler (ProAir HFA) shortness of breath or wheezing #6.7 grams benzonatate 200 mg capsule 200 mg PO TID PRN cough #14 caps 06/16/23 hydrocodone-homatropine 5 mg-1.5 5 ml PO Q4-6H PRN cough #200 mL 06/16/23 mg/5 mL (5 mL) oral syrup (Hycodan) cyclobenzaprine 5 mg tablet 5 mg PO TID PRN muscle spasm 7 10/26/23 days #21 tabs Allergies Allergy/AdvReac Type Severity Reaction Status Date / Time fish derived [FISH] Allergy Unknown SWELLING/HI Verified 12/30/23 15:40 VES Review of Systems Constitutional: Constitutional: Denies chills and Denies fever(s) Cardiovascular: Cardiovascular: Denies chest pain Musculoskeletal: Musculoskeletal: Reports arthralgias, Denies joint swelling and Denies limited range of motion PMFSH Social History Social History Advance Directives: No Advance Directives Information Provided: No Physical Exam Vital Signs: Vital Signs: Last Vital Signs Temp 97.8 F 12/30/23 19:04 Pulse 54 12/30/23 19:04 Resp 18 12/30/23 19:04 BP 137/83 12/30/23 19:04 Pulse Ox 98 12/30/23 19:04 O2 Del Method Room Air 12/30/23 19:04 BMI result Body Mass Index 0.4 Const: General: healthy appearing, comfortable, no acute distress, alert and awake Nutritional Appearance: well nourished Orientation/consciousness: patient oriented x3 HEENT: Head: Yes normocephalic and Yes atraumatic Eyes: Eyelids: Yes eyelids normal Conjunctivae: conjunctivae normal Sclerae: sclerae normal Corneas: corneas normal Pupils: Equal, round and reactive pupils present EOM: EOMs intact bilaterally Neck: Neck: Yes full ROM Resp: Effort & Inspection: normal respiratory effort, able to speak in complete sentences and not labored Skin: General skin exam: elasticity normal Neuro: General: patient oriented x3 Cranial nerves: Yes Equal, round and reactive pupils present and Yes Bilaterally intact EOM present Cognition (Neuro): normal cognition Extrem: Other: No visible or palpable deformity to the right knee. The patient has full range of motion to the right knee with flexion and extension. Negative valgus/varus strain. No laxity with anterior drawer testing Course Course Course Narrative: This is a rapid medical exam performed by Maral Epstein NP: Additional HPI, ROS, PE not included below will be deferred to primary provider. Patient is a 43-year-old male presenting to the emergency department with complaint of right knee pain for the past 4 days. Patient denies fall or other injury. Reports swelling and medial pain. Taking Dona with little relief. Plan: xray Medical Decision Making Medical Decision Making MDM Narrative: 43-year-old male presents for evaluation of chronic right knee pain. There is no edema to the right knee, no erythema. He is full range of motion. His physical exam is reassuring as there is no laxity or concern for ligamentous injury or infectious cause of his knee pain. Plan for symptomatic treatment only. Differential Diagnosis Differential Diagnoses: The differential diagnosis associated with the presentation includes Right knee pain Arthritis Knee strain Chronic knee pain Independent Interpretation I performed an independent interpretation of an: Plain X-Ray (No obvious fracture of the right knee) Radiology Impression Discussion of test interpretation with radiology: I have reviewed the radiologist's reading. Radiologist Impression: XR/XR knee RT 3V IMPRESSION: Minimal degenerative changes but no acute bony abnormality. Discharge Plan Discharge Clinical Impression: Acute pain of right knee Patient Disposition: Home, Self-Care Instructions: Knee Pain (ED) Additional Instructions: Your x-ray showed a small amount of arthritis but no fractures Use ibuprofen/Tylenol as needed for pain You may benefit from an [id number] knee brace to wear while working and standing for long periods of time Follow-up with your primary doctor Prescriptions: No Action levofloxacin 500 mg tablet 500 mg PO DAILY Qty: 10 0RF amoxicillin-pot clavulanate 875-125 mg tablet 1 tab PO BID 7 Days Qty: 14 0RF cyclobenzaprine 5 mg tablet 5 mg PO TID PRN (Reason: muscle spasm) 7 Days Qty: 21 0RF benzonatate 200 mg capsule 200 mg PO TID PRN (Reason: cough) Qty: 14 0RF hydrocodone-homatropine [Hycodan] 5-1.5 mg/5 mL (5 mL) syrup 5 ml PO Q4-6H PRN (Reason: cough) Qty: 200 0RF Rx Instructions: Partial Fill upon patient request. albuterol sulfate [ProAir HFA] 90 mcg/actuation HFA aerosol inhaler 2 puff inhalation Q4-6H PRN (Reason: shortness of breath or wheezing) Qty: 6.7 0RF Stand Alone Forms: Work/School Release Interventions: ED Discharge Assessment Last Done: 12/30/23 19:04 Discharge Date/Time: 12/30/23 19:05 Print Language: Faroese
[2023-12-30 18:19] VITALS: BP 137/83; PULSE 54; RESP 18; TEMP 36.6; O2SAT 98
[2023-12-30 19:04] VITALS: BP 137/83; PULSE 54; RESP 18; TEMP 36.6; O2SAT 98
== END 2023-12-30 19:05 | disposition home or self-care (01) ==
PROVIDERS: Emergency Provider Internal Medicine; PCP Internal Medicine
DX: M25.561 Pain in right knee (principal)
CPT/HCPCS: 73562; 99282; 99283

== ENCOUNTER 2024-12-09 10:27 | Emergency (ER) | payer OTHER, SELFPAY ==
--- NOTE | ~2024-12-09 | CT_ITS ---
EXAMINATION: CT CHEST WITHOUT IV CONTRAST, CT ABDOMEN PELVIS WITHOUT IV CONTRAST INDICATION: RIght rib pain. fracture? COMPARISON: There are no prior studies available for comparison. TECHNIQUE: CT scan of the chest, abdomen and pelvis was performed without contrast using standard departmental protocol. Coronal and sagittal reformatted images were generated and reviewed. Oral contrast material was not administered at the request of the referring physician. This CT exam was performed with one or more of the following dose reduction techniques: automated exposure control, adjustment of the mA and/or kV according to patient size, use of iterative reconstruction technique. DLP: 1347 mGy-cm CHEST: THYROID: The thyroid is unremarkable. LUNGS: There are scattered 1-2 mm nodules in both lungs. There are no focal airspace opacities. MEDIASTINUM: There is no mediastinal lymphadenopathy. KALEN: Evaluation of the hilar regions is limited by lack of intravenous contrast material. CARDIOVASCULATURE: The heart is normal in size. There is no pericardial effusion. The thoracic aorta is normal in caliber. DEGREE OF CORONARY CALCIFICATION: none PLEURA: There is no pleural effusion. No pneumothorax. MAIN AIRWAYS: The mainstem bronchi and proximal branches are patent. AXILLA: There is no axillary lymphadenopathy. SOFT TISSUES: Unremarkable. BONES: The bones are intact. ABDOMEN: LIVER: The liver is normal in size and contour. The liver demonstrates diffusely decreased attenuation, consistent with steatosis. There is a 10 mm hypodensity in the left lobe which is too small to accurately characterize. GALLBLADDER / BILE DUCTS: The gallbladder is unremarkable. There is no intra or extrahepatic biliary ductal dilatation. SPLEEN: The spleen is normal in size and has an unremarkable unenhanced appearance. PANCREAS: The pancreas has an unremarkable unenhanced appearance. ADRENAL GLANDS: Unremarkable. KIDNEYS/RETROPERITONEUM: No renal calculi are identified. There is no hydronephrosis. LYMPH NODES: No retroperitoneal lymphadenopathy is identified in the abdomen or pelvis. VASCULATURE: The abdominal aorta is normal in caliber. MESENTERY/PERITONEUM: No free fluid. No masses. There is no free intraperitoneal gas. STOMACH: The stomach is collapsed, limiting evaluation. SMALL BOWEL: The small bowel is normal in caliber. COLON: The colon is unremarkable. APPENDIX: Normal. URINARY BLADDER/PELVIC ORGANS: The urinary bladder is unremarkable. The prostate is normal in size. BONES / SOFT TISSUES: No suspicious bony or soft tissue abnormalities. CT/CT abdomen pelvis wo IV con IMPRESSION: 1. No evidence of traumatic injury to the chest, abdomen, or pelvis. Please note that evaluation for solid organ injury is limited by lack of intravenous contrast material. 2. Hepatic steatosis. Electronically signed by: Cristian Cespedes MD 12/09/2024 01:25 PM EDT
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
[2024-12-09 10:33] VITALS: BP 132/72; PULSE 70; RESP 18; TEMP 37.1; O2SAT 98; BMI 41.9
[2024-12-09 12:14] VITALS: BP 138/89; PULSE 65; RESP 14; O2SAT 99
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
[2024-12-09] MEDS: Ketorolac Tromethamine 30 MG/ML VIAL IM (14:38)
--- NOTE | 2024-12-09 14:39 | PC.NURSE ---
pt medicated for 9/10 pain per order
[2024-12-09 15:38] VITALS: BP 144/96; PULSE 62; RESP 18; TEMP 36.6; O2SAT 98
== END 2024-12-09 15:39 | disposition home or self-care (01) ==
PROVIDERS: Emergency Provider Emergency Medicine; PCP Internal Medicine
DX: S16.1XXA Strain of muscle, fascia and tendon at neck level, initial encounter (principal); V43.52XA Car driver injured in collision with other type car in traffic accident, initial encounter; Y93.89 Activity, other specified; Y92.488 Other paved roadways as the place of occurrence of the external cause; Y99.9 Unspecified external cause status
CPT/HCPCS: 70450; 71250; 72125; 74176; 96372; 99284; J1885

== ENCOUNTER → 2024-12-09 12:15 | Outpatient (BNV) | payer BC, SELFPAY | PROVIDERS: Emergency Provider Emergency Medicine; PCP Internal Medicine; Visit Provider Radiology Diagnostic Radiology | DX: K76.0 Fatty (change of) liver, not elsewhere classified (principal); R91.8 Other nonspecific abnormal finding of lung field; M25.78 Osteophyte, vertebrae; S00.93XA Contusion of unspecified part of head, initial encounter | CPT/HCPCS: 70450; 71250; 72125; 74176 ==

== ENCOUNTER 2025-03-28 15:01 | Emergency (ER) | payer BC, SELFPAY ==
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
[2025-03-28 15:09] VITALS: BP 144/71; PULSE 89; RESP 16; TEMP 37; O2SAT 95; BMI 38.2
--- NOTE | 2025-03-28 15:10 | ECG_ITS ---
Test Reason : diziness Blood Pressure : */* mmHG Vent. Rate : 89 BPM Atrial Rate : 89 BPM P-R Int : 160 ms QRS Dur : 86 ms QT Int : 352 ms P-R-T Axes : 16 -3 25 degrees QTcB Int : 428 ms Normal sinus rhythm Normal ECG When compared with ECG of 16-Jun-2023 13:32, No significant change was found Referred By: Darlene Razo Electronically Signed By: Zi Agrawal
[2025-03-28 15:47] LABS: MANUAL DIFF FLAG NO
[2025-03-28 15:49] LABS: Hematocrit 38.0 % (42.0-52.0); Hemoglobin 13.1 g/dl (14.0-18.0); Imm Gran Abs Auto 0.03 X10*3/uL (0.00-0.03); Imm Gran Pct Auto 0.2 % (0.0-0.4); Lymphocytes Absolute Auto 2.0 X10*3/uL (1.2-4.9); Mean Corpuscular HGB Conc 34.5 g/dl (31.0-36.0); Mean Corpuscular Hemoglobin 29.3 pg (27.0-33.0); Mean Corpuscular Volume 85.0 fL (80.0-98.0); NRBC Abs Auto 0.000 X10*3/uL (0.0-0.012); NRBC Pct Auto 0.0 /100WBC (0.0-0.2); Platelet Count 340 X10*3/uL (160-400); Red Blood Count 4.47 X10*6/uL (4.60-5.80); White Blood Count 13.0 X10*3/uL (4.8-10.8)
[2025-03-28 16:02] LABS: Alanine Aminotransferase 21 U/L (0-40); Albumin Level 4.6 g/dL (3.5-5.0); Alkaline Phosphatase 90 U/L (39-117); Anion Gap 15 (12-20); Aspartate Amino Transferase 17 U/L (5-37); Blood Urea Nitrogen 10 mg/dL (9-16); Calcium 9.4 mg/dL (8.4-10.2); Carbon Dioxide 25 mmol/L (22-29); Chloride 101 mmol/L (96-108); Creatinine Clr Calc Pharmacy 148.0; Estimated Glomerular Filt Rate > 60; Potassium 4.0 mmol/L (3.3-5.1); Sodium 137 mmol/L (135-145); Total Protein 7.8 g/dL (6.5-8.0)
[2025-03-28 16:52] VITALS: BP 138/78; PULSE 76; RESP 18; O2SAT 97
[2025-03-28 17:38] VITALS: BP 136/83; BP 136/84; PULSE 78; PULSE 79
[2025-03-28 17:40] VITALS: BP 129/83; PULSE 78
[2025-03-28 18:12] LABS: Resp Syncy Virus RNA Qual PCR NEGATIVE (Negative); SARS COV2 PCR INHOUSE NEGATIVE (Negative)
[2025-03-28 19:04] VITALS: BP 131/74; PULSE 85; RESP 18; TEMP -17.7; TEMP 0; O2SAT 97
[2025-03-28 19:08] VITALS: BP 131/74; PULSE 85; RESP 18; TEMP -17.7; TEMP 0; O2SAT 97
== END 2025-03-28 19:08 | disposition home or self-care (01) ==
PROVIDERS: Physician Assistant Medical; Emergency Provider Emergency Medicine; PCP Internal Medicine
DX: K64.4 Residual hemorrhoidal skin tags (principal); R42 Dizziness and giddiness; R53.81 Other malaise; F12.90 Cannabis use, unspecified, uncomplicated; Z79.899 Other long term (current) drug therapy; Z03.818 Encounter for observation for suspected exposure to other biological agents ruled out
CPT/HCPCS: 36415; 80053; 85025; 87637; 93005; 99283; 99285

== ENCOUNTER → 2025-03-28 15:10 | Outpatient (BNV) | payer BC, SELFPAY | PROVIDERS: Emergency Provider Emergency Medicine; PCP Internal Medicine; Visit Provider Internal Medicine Cardiovascular Disease | DX: R42 Dizziness and giddiness (principal) | CPT/HCPCS: 93010 ==